=== PATIENT | male | born 1960 | race Caucasian/White ===

== ENCOUNTER 2024-09-12 07:17 | Outpatient (CLI) | payer BC, SELFPAY ==
--- NOTE | ~2024-09-12 | PE_ITS ---
EXAMINATION: PET_PETPSMAST_PT DATE: 09/12/2024 10:21 INDICATION: Prostate cancer TECHNIQUE: 5.436 mCi of Illucix Ga-68([id number]) was administered i.v. Low dose computed padmini graphy (CT) images were acquired from the base of the brain to the base of the brain to the proximal thighs for attenuation correction and anatomic localization. Positron emission tomography (PET) image s were acquired in the same distribution beginning 108 minutes after injection. Images including fuse d PET/CT images were reconstructed in axial, coronal, and sagittal planes. Automated exposure control technique was employed. The dose-length product was 1476.18mGy-cm. COMPARISON: None FINDINGS: Head/neck: Typical pattern of symmetric physiologic increased activity in the lacrimal, parotid and submandibula r glands as well as along the mucosa of the nasal and oral cavities, pharynx and hypopharynx. No path ologically enlarged cervical lymphadenopathy or suspicious foci of increased uptake in the visualized head or neck. Chest: Couple calcified nodules in the left lung consistent with old granulomatous disease. No suspicious pu lmonary nodules, pneumonia, pulmonary edema or pleural effusion. Heart size is normal. Atheroscleroti c coronary artery calcific location. Thoracic aorta is normal in caliber. No pathologically enlarged or PSMA avid thoracic lymphadenopathy. Abdomen/pelvis/proximal thighs: Physiologic renal accumulation and excretion of activity in the kidneys, bladder and along portions o f ureters. Significant portion of the bladder and prostate are obscured by dense metallic streak sarah fact resulting from bilateral total hip arthroplasties. There is a small region at the left side of t he prostate with asymmetric increased activity with maximal SUV of 5.7 consistent with primary prosta te cancer. Normal degree and slightly heterogenous pattern of increased uptake throughout the liver a nd spleen without radiologic correlate or dominant PSMA avid lesion. Several tiny splenic calcificati ons consistent with old granulomatous disease. The gallbladder, pancreas and bilateral adrenal glands are normal. Moderate uptake scattered throughout the bowels with typical duodenal and proximal jejun al predominance and without radiologic correlate, also likely physiologic. Normal appendix. Mild dive rticulosis without diverticulitis. No other abnormal foci of increased uptake or pathologically enlar ged lymphadenopathy in the abdomen, pelvis or proximal thighs. Musculoskeletal: Mild thoracic dextrocurvature with mild spondylosis. Moderate cervical and lumbar spondylosis. No mervat picious lytic, blastic or abnormally PSMA avid bone lesions. IMPRESSION: 1. Small region of increased uptake in the left side of the prostate consistent with primary prostate cancer. No lesion suspicious for metastatic disease. Reviewed, dictated and finalized at location A.
--- OUTSIDE RECORDS SUMMARY | 2024-09-12 07:23 | XMS_ITS | Clinical Summary ---
Author Organization [facility] Address [address] [place] [address] Care Team Providers Care Senior Wind Energy Consultant Name Role Phone Saúl Montanez MD Primary Care Provider [phone] Allergies No known active allergies Medications rosuvastatin (CRESTOR) 20 mg tablet 08/23/2019 Active Active Problems Problem Noted Date Diagnosed Date Presence of left artificial hip joint 10/26/2023 Osteoarthrosis 09/14/2017 Overview (11/07/2019): bilateral knees Mixed hyperlipidemia 05/19/2012 Encounters Date Type Department Care Team Description 08/01/2024 8:17 AM CDT - 08/01/2024 11:59 PM CDT Hospital Encounter [facility] Orthopedics and Sports Medicine at [address] [phone] Discharge Disposition: Discharge to home or self care 08/01/2024 8:15 AM CDT Office Visit [facility] Orthopedics and Sports Medicine at [address] [phone] Angel Holley MD Presence of left artificial hip joint (Primary Dx) from Last 3 Months Surgical History Surgery Date Site/Laterality Comments HIP SURGERY KNEE SURGERY Medical History Medical History Date Comments Hypercholesteremia Family History Medical History Relation Name Comments Gout Brother Cancer Father Relation Name Status Comments Brother Father Social History Tobacco Use Types Packs/Day Years Used Date Smoking Tobacco: Never Smokeless Tobacco: Never Alcohol Use Standard Drinks/Week Comments Yes 0 (1 standard drink = 0.6 oz pur e alcohol) Sex and Gender Information Value Date Recorded Sex Assigned at Not on file Legal Sex Male 3:09 PM CDT Gender Identity Not on file Sexual Orientation Not on file Obstetrics History Last Filed Vital Signs Vital Sign Reading Time Taken Comments Blood Pressure - - Pulse - - Temperature - - Respiratory Rate - - Oxygen Saturation - - Inhaled Oxygen Concentration - - Weight 93 kg (205 lb) 08/24/2023 3:26 PM CDT Height 188 cm (6' 2 ) 08/24/2023 3:26 PM CDT Body Mass Index 26.32 08/24/2023 3:26 PM CDT Plan of Treatment Health Maintenance Due Date Last Done Comments Colon Cancer Screening-Colonoscopy 1959 Depression Screening 1959 Fall Risk Assessment 1959 Hepatitis C Screening 1959 Prostate Cancer Screening-PSA 1959 Hepatitis B Screening 1977 Pneumococcal vaccine 65+ (1 of 1 - PCV) 2009 Covid-19 Vaccine ( - 2023-2 5 season) 2023 03/28/2021, 05/12/2020, 04/10/2020 Well Visit 65+ 2024 Influenza Vaccine (Season Ended) 2024 01/19/2020, 12/24/2018, 03/05/2017, Additional history exists DTaP/Tdap/Td Vaccine (3 - Td or Tdap) 02/26/2025 02/26/2015, 04/27/2012 Zoster Vaccine Completed 03/02/2019, 12/24/2018 Procedures Procedure Name Priority Date/Time Associated Diagnosis Comments XR HIP LEFT W PELVIS 2 OR 3 VIEWS Schedule Routine, Read Routine (OP Routine) 08/01/2024 8:22 AM CDT Presence of left artificial hip joint from Last 3 Months Results * XR Hip Left 2 or 3 Views W Pelvis (08/01/2024 8:22 AM CDT) Anatomical Region Laterality Modality Lower Extremities, Hip, Pelvis Left D igital Radiography Narrative 08/01/2024 8:25 AM CDT Left hip:Today we obtained x-rays of the hip and pelvis and they show that the prosthesis is in excellent position with no signs of loosening or wear or any other problems. Right hip:Today we obtained x-rays of the hip and pelvis and they show that the prosthesis is in excellent position with no signs of loosening or wear or any other problems. The leg lengths and offset appeared to be equal on x-ray. us Angel Holley MD IMG XR PROCEDURES Final R esult from Last 3 Months Insurance [facility] MEDICARE Care Teams Senior Wind Energy Consultant Relationship Specialty Start Date End Date Saúl Montanez MD [address] [place] [phone] PCP - General Family Medicine 08/01/24
--- OUTSIDE RECORDS SUMMARY | 2024-09-12 07:23 | XMS_ITS | Referral Summary ---
Author Organization [facility] Address [address] [place] [address] Care Team Providers Care Tissue Packer Name Role Phone Saúl Montanez MD Primary Care Provider Encounters Date Type Department Care Team Description 08/01/2024 8:17 AM CDT - 08/01/2024 11:59 PM CDT Hospital Encounter [facility] Orthopedics and Sports Medicine at [address] [phone] Discharge Disposition: Discharge to home or self care 08/01/2024 8:15 AM CDT Office Visit [facility] Orthopedics and Sports Medicine at [address] [phone] Angel Holley MD Presence of left artificial hip joint (Primary Dx) from Last 3 Months Allergies No known active allergies Medications rosuvastatin (CRESTOR) 20 mg tablet 08/23/2019 Active Active Problems Problem Noted Date Diagnosed Date Presence of left artificial hip joint 10/26/2023 Osteoarthrosis 09/14/2017 Overview (11/07/2019): bilateral knees Mixed hyperlipidemia 05/19/2012 Social History Tobacco Use Types Packs/Day Years Used Date Smoking Tobacco: Never Smokeless Tobacco: Never Alcohol Use Standard Drinks/Week Comments Yes 0 (1 standard drink = 0.6 oz pur e alcohol) Sex and Gender Information Value Date Recorded Sex Assigned at Not on file Legal Sex Male 3:09 PM CDT Gender Identity Not on file Sexual Orientation Not on file Last Filed Vital Signs Vital Sign Reading Time Taken Comments Blood Pressure - - Pulse - - Temperature - - Respiratory Rate - - Oxygen Saturation - - Inhaled Oxygen Concentration - - Weight 93 kg (205 lb) 08/24/2023 3:26 PM CDT Height 188 cm (6' 2 ) 08/24/2023 3:26 PM CDT Body Mass Index 26.32 08/24/2023 3:26 PM CDT Plan of Treatment Not on file Procedures Procedure Name Priority Date/Time Associated Diagnosis [...] offset appeared to be equal on x-ray. Angel Holley MD IMG XR PROCEDURES Final R esult from Last 3 Months Insurance [facility] FEDERAL MEDICARE Care Teams Tissue Packer Relationship Specialty Start Date End Date Saúl Montanez MD [address] [place] [address] PCP - General Family Medicine 08/01/24
--- OUTSIDE RECORDS SUMMARY | 2024-09-12 07:24 | XMS_ITS | Encounter Summary ---
Author Organization [facility] Healthcare Address [address] [place] [address] Care Team Providers Care Concrete Buildings Assembler Name Role Phone Unavailable Primary Care Provider Unavailabl e Reason for Visit * Diagnostic Imaging (Routine) - Closed Specialty Diagnoses / Procedures Referred By Airamac t Referred To Contact Diagnoses Left hip pain Procedures XR Hip Left 2 or 3 Views W Pelvis Angel Holley MD Phone: tel: fax: [facility] Medical [facility] Referral ID Status Reason Start Date Expiration Date Visits Re quested Visits Authorized [id number] Closed 08/24/2023 09/22/2024 1 1 Encounter Details Date Type Department Care Team (Late st Contact Info) Description 08/24/2023 3:24 PM CDT Hospital Encounter [facility] Medical [facility] Orthopedics and Sports Medicine at [address] [phone] Social History Tobacco Use Types Packs/Day Years Used Date Smoking Tobacco: Never Smokeless Tobacco: Never Alcohol Use Standard Drinks/Week Comments Yes 0 (1 standard drink = 0.6 oz pur e alcohol) Sex and Gender Information Value Date Recorded Sex Assigned at Not on file Legal Sex Male 3:09 PM CDT Gender Identity Not on file Sexual Orientation Not on file documented as of this encounter Plan of Treatment Not on file documented as of this encounter Procedures Procedure Name Priority Date/Time Associated Diagnosis Comments XR HIP LEFT W PELVIS 2 OR 3 VIEWS Schedule Routine, Read Routine (OP Routine) 08/24/2023 3:32 PM CDT Left hip pain documented in this encounter Results * XR Hip Left 2 or 3 Views W Pelvis (08/24/2023 3:32 PM CDT) Anatomical Region Laterality Modality Lower Extremities, Hip, Pelvis Left D igital Radiography Narrative 08/24/2023 3:44 PM CDT Today we obtained x-rays of the hip and pelvis and they show that the prosthesis is in excellent position with no signs of loosening or wear or any other problems. Leg lengths and offset appeared to be equal. us Anegl Holley MD IMG XR PROCEDURES Final R esult documented in this encounter Visit Diagnoses Not on filedocumented in this encounter
--- OUTSIDE RECORDS SUMMARY | 2024-09-12 07:24 | XMS_ITS ---
Author Organization [facility] Address [address] [place], [place] [id number] Care Team Providers Care Anchor Tacker Name Role Phone Valarie Nava Primary Care Provider Unavail Angel Mcbride Unavailable [phone] REASON FOR VISIT F/U L THR MEDICATIONS Medication SIG (Take, Route, Fr equency, Duration) Notes Start Date End Date Status oxyCODONE HCl 5 MG 1 tablet as needed O rally every 6 hrs for 7 days 07/15/2023 Active Aspirin 81 MG 1 tablet Orally twic e a day for 30 day(s) 07/15/2023 Active Vistaril 25 MG 1 capsule Orally fou r times a day as needed for pain or spasm for 7 days 07/15/2023 Active CeleBREX 200 MG 1 capsule with food Orally Once a day for 30 day(s) 07/15/2023 Active Encounters Encounter Location Date Provider Diagnosis [facility] [address] [place], [place] [id number] 08/10/2023 Angel Holley PLAN OF TREATMENT No Information
--- OUTSIDE RECORDS SUMMARY | 2024-09-12 07:24 | XMS_ITS | Encounter Summary ---
Author Organization [facility] Address [address] [facility] [place] [address] Care Team Providers Care Search Consultant Name Role Phone Unavailable Primary Care Provider Unavailabl e Encounter Details Date Type Department Care Team (Late st Contact Info) Description 09/29/2019 Lab Requisition [facility] DermPath Lab [address] [place] [phone] Tay Bojorquez MD [address] [facility] [place] [address] Social History Tobacco Use Types Packs/Day Years Used Date Smoking Tobacco: Never Assessed Sex and Gender Information Value Date Recorded Sex Assigned at Not on file Legal Sex Male 4:11 PM CDT Gender Identity Not on file Sexual Orientation Not on file documented as of this encounter Plan of Treatment Not on file documented as of this encounter Procedures Procedure Name Priority Date/Time Associated Diagnosis Comments DERMATOPATHOLOGY Routine 09/27/2019 12:0 0 AM CDT documented in this encounter Results * DERMATOPATHOLOGY (09/27/2019 12:00 AM CDT) Case Report Dermatopathology Report Case: [id number] Authorizing Provider: Tay Bojorquez MD Collected: 09/27/2019 12:00 AM Ordering Location: [facility] DermPath Lab Received: 09/29/2019 08:39 AM Pathologist: Vicenta Turk MD Specimens: A) - Skin, right upper back B) - Skin, left mid back 0 2:33 PM CDT DERMATOPATHOLOGY LABORATORY Final Diagnosis Specimen A. SKIN, right upper back: LENTIGINOUS MELANOCYTIC NEVUS, COMPOUND TYPE, IRRITATED (COMPOUND MELANOCYTIC NEVUS WITH ARCHITECTURAL DISORDER) (D22.5) Specimen B. SKIN, left mid back: LENTIGINOUS MELANOCYTIC NEVUS, COMPOUND TYPE (COMPOUND MELANOCYTIC NEVUS WITH ARCHITECTURAL DISORDER) (D22.5) 0 2:33 PM CDT DERMATOPATHOLOGY LABORATORY at 1433 CDT Clinical History A: Nevus vs MM. Path# [id number] B: Nevus vs MM. Path# [id number] 0 2:33 PM CDT DERMATOPATHOLOGY LABORATORY Gross Description Specimen A: Received is one formalin filled container labeled with the patient's name and designated right upper back. The specimen consists of a shave biopsy measuring 8x6x1 mm. Jar 0. Specimen B: Received is one formalin filled container labeled with the patient's name and designated left mid back. The specimen consists of a shave biopsy measuring 6x5x1 mm. Jar 0. 0 2:33 PM CDT DERMATOPATHOLOGY LABORATORY Microscopic Description Specimen A. SKIN, right upper back: This is a compound nevus. There is melanin pigment in the stratum corneum. There is architectural disorder characterized by a lentiginous proliferation of melanocytes between irregular nevus nests of cells along the dermal epidermal junction. There is underlying fibroplasia of the papillary dermis. The intradermal component is bland in appearance and matures with depth. (Compound Bobby's Nevus or Compound Dysplastic Nevus) Specimen B. SKIN, left mid back: This is a compound nevus. There is architectural disorder characterized by a lentiginous proliferation of melanocytes between irregular nevus nests of cells along the dermal-epidermal junction. There is underlying lamellar fibroplasia of the papillary dermis. The intradermal component is bland in appearance and matures with depth. (Compound Bobby's Nevus or Compound Dysplastic Nevus) 0 2:33 PM CDT DERMATOPATHOLOGY LABORATORY Disclaimer An external and internal positive and negative controls are appropriate for the histochemical, immunohistochemical and immunofluorescence stain(s) in this case (if any), except where stated explicitly. The performance characteristics of the stain(s) cited in this report were developed and its performance characteristic determined by the Dermatopathology Laboratory at [facility], directed by Dr. Kenna Storey. These tests need not be, and therefore are not, approved by the [place] Food and Drug Administration. The tests are used for clinical purposes. Billing Codes Specimen Charges Stain Charges 78287 04759 1 1 0 2:33 PM CDT DERMATOPATHOLOGY LABORATORY Embedded Images 0 2:33 PM CDT DERMATOPATHOLOGY LABORATORY Pathology/Cytology TISSUE SPECIMEN FROM SKIN / Unknown 09/27/2019 09/29/2019 8:39 AM CDT Miscellaneous samples (specimen) TISSUE SPECIMEN FROM SKIN / Unknown 09/27/2019 09/29/2019 8:39 AM CDT us Tay Bojorquez MD LAB - PATHOLOGY/CYTOLOGY ORDER BONIFACIO Final Result DERMATOPATHOLOGY LABORATORY [facility] - Department of Dermatology [facility]/[address] [phone] documented in this encounter Visit Diagnoses Not on filedocumented in this encounter
--- OUTSIDE RECORDS SUMMARY | 2024-09-12 07:24 | XMS_ITS | Encounter Summary ---
Author Organization [facility] Address [address] [place] [address] Care Team Providers Care Nuclear Medicine Medical Director Name Role Phone Unavailable Primary Care Provider Unavailabl e Encounter Details Date Type Department Care Team (Late st Contact Info) Description 09/24/2020 Lab Requisition [facility] DermPath Lab [address] [place] [address] Tay Bojorquez MD [address] [place] [address] Social History Tobacco Use Types Packs/Day Years [...] Priority Date/Time Associated Diagnosis Comments DERMATOPATHOLOGY Routine 09/20/2020 3:33 AM CDT documented in this encounter Results * DERMATOPATHOLOGY (09/20/2020 3:33 AM CDT) Case Report Dermatopathology Report Case: [id number] Authorizing Provider: Tay Bojorquez MD Collected: 09/20/2020 03:33 AM Ordering Location: [facility] DermPath Lab Received: 09/24/2020 05:40 AM Pathologist: Lolita Blair MD Specimen: Skin, left shoulder 5:41 PM CDT DERMATOPATHOLOGY LABORATORY Final Diagnosis Specimen A. SKIN, left shoulder: JUNCTIONAL MELANOCYTIC PROLIFERATION; PRESENT AT MARGIN (D48.5) (see microscopic description and comment) 5:41 PM CDT DERMATOPATHOLOGY LABORATORY at 1741 CDT Clinical History Nevus vs MM. Path# [id number] 5:41 PM CDT DERMATOPATHOLOGY LABORATORY Gross Description Specimen A: Received is one formalin filled container labeled with the patient's name and designated left shoulder. The specimen consists of a shave biopsy measuring [id number]. Jar 0. 1 5:41 PM CDT DERMATOPATHOLOGY LABORATORY Microscopic Description Specimen A. SKIN, left shoulder: Sections show a junctional melanocytic proliferation. There is a lentiginous proliferation of melanocytes between irregular nests. Scattered melanocytes show evidence of upward migration within the epidermis. The melanocytes are highlighted by MART-1/Melan-A. This lesion is present at the margin of the specimen. COMMENT: Because this lesion is present at the margin of the specimen, symmetry and circumscription cannot be evaluated. Therefore, a complete but conservative re-excision is recommended to evaluate this lesion in its entirety. This case was also reviewed by Dr. Vicenta Turk, who agrees. 5:41 PM CDT DERMATOPATHOLOGY LABORATORY Disclaimer An external and internal positive and negative controls are appropriate for the histochemical, immunohistochemical and immunofluorescence stain(s) in this case (if any), except where stated explicitly. The performance characteristics of the stain(s) cited in this report were developed and its performance characteristic determined by the Dermatopathology Laboratory at [facility], directed by Dr. Kenna Storey. These tests need not be, and therefore are not, approved by the [place] Food and Drug Administration. The tests are used for clinical purposes. Billing Codes Specimen Charges Stain Charges 03162 1 29940 1 1 5:41 PM CDT DERMATOPATHOLOGY LABORATORY Embedded Images 5:41 PM CDT DERMATOPATHOLOGY LABORATORY Pathology/Cytolo gy TISSUE SPECIMEN FROM SKIN / Unknown 09/20/2020 3:33 AM CDT 09/24/2020 5:40 AM CDT us Tay Bojorquez MD LAB - PATHOLOGY/CYTOLOGY ORDER BONIFACIO Final Result DERMATOPATHOLOGY LABORATORY [facility] - Department of Dermatology [address] [phone] documented in this encounter Visit Diagnoses Not on filedocumented in this encounter
--- OUTSIDE RECORDS SUMMARY | 2024-09-12 07:24 | XMS_ITS | Encounter Summary ---
Author Organization [facility] Healthcare Address [address] [place] [address] Care Team Providers Care Mastercam Programmer Name Role Phone Unavailable Primary Care Provider Unavailabl e Reason for Visit * Diagnostic Imaging (Routine) - Closed Specialty Diagnoses / Procedures Referred By Daryl t Referred To Contact Diagnoses Left hip pain Procedures XR Hip Left 2 or 3 Views W Pelvis Angel Holley MD Phone: tel: fax: [facility] Medical Group Referral ID Status Reason Start Date Expiration Date Visits Re quested Visits Authorized [id number] Closed 10/26/2023 11/24/2024 1 1 Encounter Details Date Type Department Care Team (Late st Contact Info) Description 10/26/2023 10:12 AM CDT Hospital Encounter [facility] Medical [facility] Orthopedics and Sports Medicine at [address] [phone] Social History Tobacco Use Types Packs/Day Years [...] VIEWS Schedule Routine, Read Routine (OP Routine) 10/26/2023 10:30 AM CDT Left hip pain documented in this encounter Results * XR Hip Left 2 or 3 Views W Pelvis (10/26/2023 10:30 AM CDT) Anatomical Region Laterality Modality Lower Extremities, Hip, Pelvis Left D igital Radiography Narrative 10/26/2023 10:34 AM CDT Today we obtained x-rays of the hip and pelvis and they show that the prosthesis is in excellent position with no signs of loosening or wear or any other problems. His leg lengths and offsets appeared to be equal on x-ray. us Angel Holley MD IMG XR PROCEDURES Final R esult documented in this encounter Visit Diagnoses Not on filedocumented in this encounter
--- OUTSIDE RECORDS SUMMARY | 2024-09-12 07:24 | XMS_ITS | Clinical Summary ---
Author Organization [facility] Address [address] [place] [address] Care Team Providers Care Set Up Mechanic Crown Assembly Machine Name Role Phone Unavailable Primary Care Provider Unavailabl e Source Comments [facility],non-owned Affiliates and Associated Physician Practices is amultiple site organization consisting of ambulatory clinics and hospital sitesin [place], [place], [place] and [place]. This disclosure is being madepursuant to the Care Everywhere program and may not contain all information available regarding this patient. Last updated 18.[facility] Social History Tobacco Use Types Packs/Day Years Used Date Smoking Tobacco: Never Assessed Sex and Gender Information Value Date Recorded Sex Assigned at Not on file Legal Sex Male 4:11 PM CDT Gender Identity Not on file Sexual Orientation Not on file Plan of Treatment Health Maintenance Due Date Last Done Comments COLOGUARD (AGES 45-75) - COL ON CA SCREENING 1959 COLON MONITORING 1959 COLONOSCOPY - COLON CA SCREENING 1959 CT COLONOGRAPHY - COLON CA SCREENING 1959 Colorectal Cancer Screening 1959 FIT - COLON CA SCREENING 1959 FLEX SIG - COLON CA SCREENING 1959 LIPID TESTING 1959 HIV SCREENING 1974 HEPATITIS C SCREENING 05/08/1977 DTAP/TDAP/TD VACCINES (1 - Tdap) 1978 PNEUMOCOCCAL VACCINE 50+ (1 of 1 - PCV) 2009 ZOSTER VACCINE (1 of 2) 2009 COVID-19 VACCINE ( - 2023-2 5 season) 2023 DEPRESSION SCREENING 04/19/2024 INFLUENZA VACCINE (Season Ended) 2024 Respiratory Syncytial Virus (RSV) Vaccine Pt: or over 60 yrs (1 - 1-dose 75+ series) 2034 HEPATITIS B VACCINE Aged Out No longe r eligible based on patient's age to complete this topic HIB VACCINE Aged Out No longer eligi ble based on patient's age to complete this topic HPV VACCINE Aged Out No longer eligi ble based on patient's age to complete this topic MENINGOCOCCAL (Group B) VACC INE SHARED DECISION-MAKING Aged Out No longer eligibl e based on patient's age to complete this topic MENINGOCOCCAL GROUPS A/C/Y/W VACCINE Aged Out No longer eligible b ased on patient's age to complete this topic Insurance
--- OUTSIDE RECORDS SUMMARY | 2024-09-12 07:24 | XMS_ITS ---
Author Organization [facility] Orthopedics [facility] Address [address] [place], [place] [id number] Care Team Providers Care Care Team Assistant Name Role Phone Valarie Nava Primary Care Provider Unavail Angel Mcbride Unavailable [phone] REASON FOR VISIT L THR PROBLEMS Problem Type ICD Code Onset Dates Problem Status W/U Status Risk SNOMED Code Notes Problem Arthritis of left hip (M16.12) Active confirmed Arthritis of left hip ([id number] 105) Encounters Encounter Location Date Provider Diagnosis [facility] [address] [place] [address] 07/16/2023 Angel Holley Arthritis of left hip M16.12 ASSESSMENTS Encounter Date Diagnosis Assessment Notes Treatment Notes Treatment Clinical Notes 07/16/2023 Arthritis of left hip (ICD-10 - M16.12) PLAN OF TREATMENT No Information
--- OUTSIDE RECORDS SUMMARY | 2024-09-12 07:25 | XMS_ITS ---
Author Organization [facility] Orthopedics [facility] Address [address] [place], [place] [id number] Care Team Providers Care Asphalt Distributor Operator Name Role Phone Valarie Nava Primary Care Provider Unavail Angel Mcbride [facility] [phone] MEDICATIONS Medication SIG (Take, Route, Fr equency, Duration) Notes Start Date End Date Status oxyCODONE HCl 5 MG 1 tablet as needed O rally every 6 hrs for 7 days 07/15/2023 Active CeleBREX 200 MG 1 capsule with food Orally Once a day for 30 day(s) 07/15/2023 Active Aspirin 81 MG 1 tablet Orally twic e a day for 30 day(s) 07/15/2023 Active Vistaril 25 MG 1 capsule Orally fou r times a day as needed for pain or spasm for 7 days 07/15/2023 Active Encounters Encounter Location Date Provider Diagnosis [facility] Orthopedics [facility] [address] [place], [place] [phone] 07/15/2023 Angel Holley PLAN OF TREATMENT Medication Medication Name Sig Start Date Stop Date Notes oxyCODONE HCl 5 MG 1 tablet as needed O rally every 6 hrs for 7 days 07/15/2023 CeleBREX 200 MG 1 capsule with food Orally Once a day for 30 day(s) 07/15/2023 Aspirin 81 MG 1 tablet Orally twic e a day for 30 day(s) 07/15/2023 Vistaril 25 MG 1 capsule Orally fou r times a day as needed for pain or spasm for 7 days 07/15/2023
--- OUTSIDE RECORDS SUMMARY | 2024-09-12 07:25 | XMS_ITS | Patient Health Record ---
Author Organization [facility] Address [address] [place], [place] [id number] Care Team Providers Care Boiler Tender Name Role Phone Valarie Nava Primary Care Provider Unavail able Angel Holley Unavailable [phone] ALLERGIES No Known Allergies REASON FOR REFERRAL No Information MEDICATIONS Medication SIG (Take, Route, Fr equency, [...] a day for 30 day(s) 07/15/2023 Active SOCIAL HISTORY Tobacco Use: Social History Observation Description Date Details (start date - stop date) Never Smoker NA - NA Sex Assigned At : Social History Observation Description Sex Assigned At Unknown Tobacco Use/Smoking Question Answer Notes Are you a nonsmoker PROBLEMS Problem Type ICD Code Onset Dates Problem Status W/U Status Risk SNOMED Code Notes Problem Primary osteoarthritis of right hip (M16.11) Active confirmed 292265892273512 Problem H/O total hip arthroplasty (Z96.649) Active confirmed Problem Primary osteoarthritis of left hip (M16.12) Active confirmed 131211061725755 Problem Arthritis of left hip (M16.12) Active confirmed Arthritis of le ft hip (4796503139953390) PLAN OF TREATMENT Pending Test Test Name Order Date X ray : Hip, left, 2 03/25/2023 X ray : Hip, right, 2 06/08/2019 X ray : Hip, right, 2 08/10/2019 X ray : Hip, right, 2 05/09/2020 X ray : Hip, right, 2 12/22/2018 CBC With Differential/Platelet 3 EKG 12 lead 03/25/2023 BMP 03/25/2023 Insurance Providers Payer Name Payer Address Payer Phone Subscriber Number Group Number Insured Name Patient Relationship to Insured Coverage Start Date Coverage End Date [employer] [address] [place] [address] [id number] Rosio Price Spouse - patient is the spouse of the insured MEDICAL (GENERAL) HISTORY Medical History History ICD Code Skin Cancer Surgical History Surgery Date(Month/Year) Knee Right Total Hip Replacement Hospitalization History Reason Date(Month/Year) Same as Surgical Hx
== END 2024-09-12 07:18 | disposition home or self-care (01) ==
PROVIDERS: PCP Family Medicine; Visit Provider Urology
DX: C61 Malignant neoplasm of prostate (principal); Z19.1 Hormone sensitive malignancy status
CPT/HCPCS: 78815; A9596